=== PATIENT | female | born 1970 | race Caucasian/White ===

== ENCOUNTER 2018-05-19 09:53 | Outpatient (CLI) | payer MEDICARE, MEDICAID ==
--- NOTE | 2018-05-23 11:13 | Diagnostic Imaging Report ---
Ultrasound of the bilateral breasts HISTORY: Annual follow-up. Provided history of left upper medial breast mechanical implants for seizures. COMPARISON: None available Technique: Sonography of the bilateral breasts was performed in multiple planes. FINDINGS: Exam of the right breast demonstrates glandular and fatty breast tissue. There is a round hypoechoic area at 1:00 measuring 1.0 x 0.9 cm. There is an additional hypoechoic areas throughout the right chest wall including at 4:00 measuring 1.6 x 0.9 cm. These may represent multiple ribs. Few dilated ducts of the right retroareolar region is noted. Exam of the left breast demonstrate glandular and fatty breast tissue. There is linear hyperechogenicity seen along the area of palpable concern at 10-11 o'clock which may be related patient's mechanical implant. Few dilated ducts are noted. IMPRESSION: Hypoechoic areas of the right breast which may account for patient's ribs. Underlying mass lesions are less likely however, correlation needs to be made with mammography. If patient cannot tolerate mammography, MRI may be considered. Linear hyperechogenicity along the area of palpable concern at 10-11:00. This is indeterminate and may be due to patient's provided history of mechanical implants in this region. Correlate with clinical findings and mammography. View bilateral dilated ducts, nonspecific BI-RADS 0, incomplete. Further assessment including mammography is recommended. Note that a clinically suspicious breast abnormality should not preclude sonographic findings.
== END 2018-05-19 10:45 ==
LOC: RAD 09:53
DX: Z00.01 Encounter for general adult medical examination with abnormal findings (principal); R92.8 Other abnormal and inconclusive findings on diagnostic imaging of breast
CPT/HCPCS: 76641

== ENCOUNTER 2018-05-23 08:20 | Outpatient (CLI) | payer MEDICARE, MEDICAID | END 2018-05-23 09:50 | LOC: RAD 08:20 | DX: Z00.01 Encounter for general adult medical examination with abnormal findings (principal); R92.8 Other abnormal and inconclusive findings on diagnostic imaging of breast; Z53.8 Procedure and treatment not carried out for other reasons | CPT/HCPCS: 76641 ==

== ENCOUNTER 2019-01-25 10:13 | Emergency (ER) | payer MEDICARE, MEDICAID ==
[2019-01-25] MEDS ORDERED: Diatrizoate Meglumine/Diatri 30 mL Sol ONE (10:31)
--- NOTE | 2019-01-25 10:35 | ED Physician Chart ---
ED Chief Complaint/HPI - Patient Information Date Seen:: 01/25/19 Time Seen:: 10:25 Chief Complaint:: G-tube replacement History of Present Illness:: Patient reportedly pulled out her G-tube at 0830 this morning. Allergies:: Allergies Allergy/AdvReac Type Severity Reaction Status Date / Time amoxicillin [From Augmentin] Allergy Verified 01/25/19 10:15 cephalexin [From Keflex] Allergy Verified 01/25/19 10:15 clavulanic acid Allergy Verified 01/25/19 10:15 [From Augmentin] Vitals:: Vital Signs - 8 hr 01/25/19 10:15 Temp 97.6 F HR 79 RR 18 BP 126/73 O2 Sat % 100 Historian:: EMS Review:: Transfer documents Reviewed ED Review of Systems - Review of Systems General/Constitutional: No fever, No chills, No weight loss, No weakness, No diaphoresis, No edema, No loss of appetite Skin: No skin lesions, No rash, No bruising Head: No headache, No light-headedness Eyes: No loss of vision, No pain, No diplopia ENT: No earache, No nasal drainage, No sore throat, No tinnitus Neck: No neck pain, No swelling, No thyromegaly, No stiffness, No mass noted Cardio Vascular: No chest pain, No palpitations, No PND, No orthopnea, No edema Pulmonary: No SOB, No cough, No sputum, No wheezing GI: No nausea, No vomiting, No diarrhea, No pain, No melena, No hematochezia, No constipation, No hematemesis G/U: No dysuria, No frequency, No hematuria Musculoskeletal: No bone or joint pain, No back pain, No muscle pain Endocrine: No polyuria, No polydipsia Psychiatric: No prior psych history, No depression, No anxiety, No suicidal ideation Hematopoietic: No bruising, No lymphadenopathy Allergic/Immuno: No urticaria, No angioedema Neurological: No syncope, No focal symptoms, No weakness, No paresthesia, No headache, No seizure, No dizziness, No confusion, No vertigo ED Past Medical History - Past Medical History Past Medical History: Seizures, Other (profound mental retardation; cerebral palsy) Family History: Other (unavailable) Social History: Care Facility Surgical History: PEG/GTube Psychiatricy History: Other (see above) Medication: Reviewed Family Medical History - Family Member Mother History Unknown: Yes ED Physical Exam - Physical Examination Other Gen/Cons comments:: Alert and contractured Eyes: Lids, conjuctiva normal Skin: Nl inspection ENMT: External ears, nose nl Neck: No nuchal rigidity Respiratory: Nl effort/Exclusion Cardio Vascular: RRR GI: No tenderness/rebounding/guarding : No CVA tenderness Extremities: No tenderness or effusion Other Neuro/Psych comments:: Contracture ED Labs/Radiology/EKG Results - Radiology Results Results: KUB before Gastrografin injected showed severe scoliosis; KUB after Gastrografin inserted showed contrast material to be in the GI tract. ED Assessment - Procedures Procedures:: G-tube balloon deflated and G-tube removed; Betadine swab used to clean around the stoma; #22 G-tube inserted and balloon inflated with 15 mL of normal saline ED Septic Shock - . Is Septic Shock (SBP<90, OR Lactate>4 mmol\L) present?: No - <6hrs of presentation: Vital Signs: Vital Signs - 8 hr 01/25/19 10:15 Temp 97.6 F HR 79 RR 18 BP 126/73 O2 Sat % 100 ED Reassessment (Disposition) - Reassessment Reassessment Condition:: Improved - Diagnosis Diagnosis:: G-tube replacement; cerebral palsy; severe intellectual delay; severe scoliosis - Aftercare/Follow up Instructions Aftercare/Follow-Up Instructions:: Refer to Discharge Instructions - Patient Disposition Discharge/Transfer:: Retirement Care - SNF Condition at Disposition:: Stable, Improved
--- NOTE | 2019-01-25 12:13 | Diagnostic Imaging Report ---
Upper GI with Gastrografin HISTORY: G-tube confirmation COMPARISON: None FINDINGS: Privacy Compliance Manager view demonstrates copious stool with gas the cells of bowel. Percutaneous feeding tube is noted. Bilateral hip dysplasia is noted. Severe scoliosis is noted. The second image demonstrates contrast opacification of the stomach and small bowel loops. IMPRESSION: Intraluminal confirmation of patient's percutaneous gastric feeding tube. Copious stool and probable constipation.
== END 2019-01-25 11:00 ==
LOC: ER 10:13
DX: Z43.1 Encounter for attention to gastrostomy (principal); G80.9 Cerebral palsy, unspecified; M41.9 Scoliosis, unspecified; Z88.0 Allergy status to penicillin; Z88.1 Allergy status to other antibiotic agents
CPT/HCPCS: Z7610